=== PATIENT | male | born 1975 | race Caucasian/White ===

== ENCOUNTER 2023-12-01 14:14 | Emergency (ER) | payer OTHER, SELFPAY ==
--- NOTE | 2023-12-01 14:25 | ED.SKABFB ---
HPI - Skin/Abscess/Foreign Bdy General Chief complaint: Skin/Abscess/Foreign Body Stated complaint: wasp sting right finger,swollen Time Seen by Provider: 12/01/23 14:36 Source: patient and RN notes reviewed Mode of arrival: ambulatory Limitations: dementia History of Present Illness HPI narrative: 48-year-old male presents with concern for wasp sting to the right hand. Reports yesterday he was stung in the 2nd digit of the right hand by a wasp. He removed the stinger this morning. Reports swelling, redness at extending into the hand. He denies pain, reports mild itching. Denies lip swelling, tongue swelling, trouble breathing. 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 He does not currently have an EpiPen. MD complaint: insect bite/sting Related Data Home Medications Medication Instructions Recorded Confirmed lisinopril 5 mg tablet 5 mg PO DAILY 12/01/23 12/01/23 mirtazapine 15 mg tablet 15 mg PO HS 12/01/23 12/01/23 Allergies Allergy/AdvReac Type Severity Reaction Status Date / Time bee venom protein (honey bee) Allergy Severe Anaphylaxis Verified 12/01/23 14:38 Review of Systems Review of Systems: CONSTITUTIONAL: Denies malaise, chills, sweats, or fever. EYES: Denies redness, or discharge. ENT: Denies rhinorrhea, congestion, swollen lips, swollen tongue CARDIOVASCULAR: Denies chest pain, palpitations, or edema. RESPIRATORY: Denies cough or dyspnea. GASTROINTESTINAL: Denies abdominal pain, nausea, vomiting SKIN: Reports redness, swelling, warmth to the 2nd digit of the right hand and the dorsal hand. Denies purulent drainage, vesicles, bullae, numbness, pain beyond proportion MUSCULOSKELETAL: Denies joint pain or myalgia. NEUROLOGIC: Denies headache. All systems reviewed & are unremarkable except as noted in HPI and below PMFSH Comments At time of signature, agree with nursing past medical, surgical, social and family history. There is no relevant family history pertinent to the presenting complaint Exam Narrative: GENERAL: Well-appearing, well-nourished, and in no acute distress. HEAD: Normocephalic, atraumatic. EYES: PERRLA, conjunctivae clear ENT: Mucous membranes moist. NECK: Supple. No lymphadenopathy CHEST: Clear to auscultation. No respiratory distress. HEART: Regular rate and rhythm. SKIN: Warm, dry. Erythema, warmth noted to the 2nd digit and dorsal right hand, no induration. No vesicles, bullae, necrosis, ecchymosis, crepitus noted. NEURO: Alert and oriented x3. PSYCH: Normal mood and affect Course Course Emergency Course: Will prescribe patient epipen given his history of anaphylactic reaction to bee stings Patient is aware of diagnosis, understands and agrees to treatment plan. Anticipatory guidance given. Patient agrees to follow-up as directed and is aware of reasons to seek care at the emergency department. Portions of this record may have been created with voice recognition software Level of Care: Express Care Visit Vital Signs Vital signs: Reviewed. MDM - Skin/Abscess/Foreign Bdy MDM Narrative Medical decision making narrative: I evaluated this in the express care. History is obtained from patient who is an independent historian and physical exam was performed.? Available medical records were reviewed. ? Exam findings and relevant testing show no acute concerns or changes; patient is non-toxic appearing and is in no distress. No risk factors or findings concerning for epidural abscess, diskitis, vertebral osteomyelitis, cord compression, cauda equina, vertebral fracture or bone malignancy, AAA, or pyelonephritis. Patient instructed to consider further imaging and workup through their primary care physician as an outpatient if symptoms persist. Does not appear at this time to be erythema multiforme, bullous, SJS, TEN; no evidence at this time to suggest RMSF, NSTI, endocarditis or Lyme disease; patient looks well, nontoxic and is tolerating oral intake; no
[2023-12-01 14:28] VITALS: BP 116/75; PULSE 94; RESP 16; TEMP 37.1; O2SAT 98
== END 2023-12-01 14:44 | disposition home or self-care (01) ==
PROVIDERS: Emergency Provider Nurse Practitioner; PCP Internal Medicine
DX: T63.461A Toxic effect of venom of wasps, accidental (unintentional), initial encounter (principal); Z91.030 Bee allergy status; I10 Essential (primary) hypertension
CPT/HCPCS: 99203; G0463

== ENCOUNTER 2024-01-01 11:28 | Outpatient (CLI) | payer OTHER, SELFPAY ==
[2024-01-01 12:10] LABS: Basophils Absolute Auto 0.1 K/mm3 (0.0-0.1); Basophils Percent Auto 0.8 % (0.2-1.2); Eosinophils Absolute Auto 0.4 K/mm3 (0-0.3); Eosinophils Percent Auto 4.1 % (0-4.4); Hematocrit 41.1 % (42.0-52.0); Immature Granulocyte Absolute 0.03 K/mm3 (0.00-0.031); Immature Granulocyte Percent A 0.3 % (0-0.5); Lymphocytes Percent Auto 22.4 % (18.3-44.2); Mean Corpuscular HGB Conc 34.1 g/dl (32-36); Mean Corpuscular Volume 85.3 fl (80-100); Mean Platelet Volume 11.6 fl (7.4-10.4); Monocytes Absolute Auto 0.9 K/mm3 (0.1-0.6); Monocytes Percent Auto 8.7 % (2.6-8.5); Neutrophils Absolute Auto 6.2 K/mm3 (1.3-6.7); Neutrophils Percent Auto 63.7 % (45.5-73.1); Platelet Count Result 260 k/mm3 (150-375); Red Blood Count 4.82 M/mm3 (4.6-6.20); Red Cell Distribution Width 16.5 % (11.5-14.5); White Blood Count 9.8 K/mm3 (4.5-10.0)
== END 2024-01-01 11:29 | disposition home or self-care (01) ==
PROVIDERS: PCP Internal Medicine; Visit Provider Internal Medicine
DX: Z00.00 Encounter for general adult medical examination without abnormal findings (principal); I10 Essential (primary) hypertension; F41.9 Anxiety disorder, unspecified; Z12.5 Encounter for screening for malignant neoplasm of prostate
CPT/HCPCS: 36415; 80053; 80061; 84153; 84443; 85025; G0103

== ENCOUNTER 2024-01-13 08:44 | Outpatient (CLI) | payer OTHER, SELFPAY ==
[2024-01-13 09:26] LABS: Alanine Aminotransferase 17 U/L (6-50); Albumin Level 4.7 g/dL (3.5-5.1); Alkaline Phosphatase 92 U/L (38-126); Anion Gap 12 mmol/L (4-12); Aspartate Amino Transferase 26 U/L (17-59); Bilirubin,Total 0.6 mg/dL (0.2-1.3); Blood Urea Nitrogen 15 mg/dL (9-20); Carbon Dioxide 28 mmol/L (22-30); Chloride 99 mmol/L (98-107); Cholesterol 183 mg/dL (0-200); Estimated Glomerular Filt Rate > 60; Glucose 98 mg/dL (65-110); HDL Direct 49 mg/dL; Potassium 4.5 mmol/L (3.4-5.0); Sodium 139 mmol/L (137-145); Triglycerides 86 mg/dL (<150)
[2024-01-13 09:36] LABS: LDL Cholesterol Direct 97 mg/dL
[2024-01-13 09:56] LABS: Prostate Specific Antigen 1.5 ng/mL (< OR = 4.0); Thyroid Stimulating Hormone 0.643 uIU/mL (0.465-4.680)
== END 2024-01-13 08:45 | disposition home or self-care (01) ==
LOC: ANHLAB 08:45
PROVIDERS: PCP Internal Medicine; Visit Provider Internal Medicine
DX: Z00.00 Encounter for general adult medical examination without abnormal findings (principal); F41.9 Anxiety disorder, unspecified; I10 Essential (primary) hypertension; Z12.5 Encounter for screening for malignant neoplasm of prostate
CPT/HCPCS: 36415; 80053; 80061; 84153; 84443; G0103

== ENCOUNTER 2025-02-10 10:30 | Outpatient (CLI) | payer OTHER, SELFPAY ==
--- NOTE | 2025-02-10 10:35 | ECG_ITS ---
Test Date: 2025-02-10 10:46:03 Measurements Intervals [place] Rate: 76 P: 80 [place]: 140 QRS: 72 QRSD: 101 T: 60 QT: 363 QTc: 409 Interpretive Statements SINUS RHYTHM WITH OCCASIONAL SUPRAVENTRICULAR PREMATURE COMPLEXES POSSIBLE LEFT ATRIAL ENLARGEMENT ANTEROSEPTAL INFARCT, AGE INDETERMINATE BASELINE ARTIFACT- I, II, III, AVR, AVL, AVF, V1-V6 ABNORMAL ECG No previous ECG available for comparison Electronically Signed On 02-10-2025 10:48:34 CDT by Jasbir Garcia D.O.
--- OUTSIDE RECORDS SUMMARY | 2025-02-10 10:56 | XMS_ITS | Clinical Summary ---
Author Organization [facility] Address [address] [place] [address] Care Team Providers Care Credit Union Manager Name Role Phone Stella Hilario MD Primary Care Provider Source Comments [facility],non-owned Affiliates and Associated Physician Practices is amultiple site organization consisting of ambulatory clinics and hospital sitesin [place], [place], [place] and [place]. This disclosure is being madepursuant to the Care Everywhere program and may not contain all information available regarding this patient. 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 Gender Identity Not on file Sexual Orientation Not on file Plan of Treatment Health Maintenance Due Date Last Done Comments COLOGUARD (AGES 45-75) - COL ON CA SCREENING 1973 COLON MONITORING 1973 COLONOSCOPY - COLON CA SCREENING 1973 CT COLONOGRAPHY - COLON CA SCREENING 1973 Colorectal Cancer Screening 1973 FIT - COLON CA SCREENING 1973 FLEX SIG - COLON CA SCREENING 1973 LIPID TESTING 1973 HIV SCREENING 1988 HEPATITIS C SCREENING 08/17/1991 DTAP/TDAP/TD VACCINES (1 - Tdap) 1992 HEPATITIS B VACCINE (1 of 3 - 19+ 3-dose series) 1992 PNEUMOCOCCAL VACCINE 50+ (1 of 1 - PCV) 08/22/2023 ZOSTER VACCINE (1 of 2) 08/22/2023 COVID-19 VACCINE (1 - 4-2 5 season) 2024 DEPRESSION SCREENING 06/17/2024 INFLUENZA VACCINE (#1) 2025 HIB VACCINE Aged Out No longer eligi ble based on patient's age to complete this topic HPV VACCINE Aged Out No longer eligi ble based on patient's age to complete this topic MENINGOCOCCAL (Group B) VACC INE SHARED DECISION-MAKING Aged Out No longer eligibl e based on patient's age to complete this topic MENINGOCOCCAL GROUPS A/C/Y/W VACCINE Aged Out No longer eligible b ased on patient's age to complete this topic Insurance HEALTH Care Teams Credit Union Manager Relationship Specialty Start Date End Date Stella Hilario MD [id number] [id number] PCP - General Internal Medicine 09/01/18
--- OUTSIDE RECORDS SUMMARY | 2025-02-10 10:56 | XMS_ITS | Clinical Summary ---
Author Organization [facility] Address [address] [place] [address] Phone Care Team Providers Care Public Health Doctor Name Role Phone Unavailable Primary Care Provider Unavailabl e Allergies No known active allergies Medications folic acid (FOLVITE) 1 mg tablet Take 1 Tablet (1 mg) by mouth daily. 30 Tablet 09/12/2023 Active lisinopriL (PRINIVIL) 5 mg tablet Take 1 Tablet (5 mg) by mouth daily. 30 Tablet 1 09/12/2023 Active mirtazapine (REMERON) 15 mg tablet Take 1 Tablet (15 mg) by mouth daily at bedtime. 30 Tablet 2 09/11/2023 Active thiamine mononitrate (VITAMIN B-1) 100 mg tablet Take 1 Tablet (100 mg) by mouth daily. 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 No 09/07/2023 Sex and Gender Information Value Date Recorded Sex Assigned at Not on file Legal Sex Male 9:54 PM CDT Gender Identity Not on file Sexual Orientation Not on file Last Filed Vital Signs Vital Sign Reading Time Taken Comments Blood Pressure 114/50 09/11/2023 9:00 AM CDT Pulse 112 09/11/2023 9:00 AM CDT Temperature 37 C (98.6 F) 09/11/2023 9:00 AM CDT Respiratory Rate 18 09/11/2023 9:00 AM CDT Oxygen Saturation 97% 09/11/2023 9:00 AM CDT Inhaled Oxygen Concentration - - Weight 98.7 kg (217 lb 11.2 oz) 09/09/2023 2:16 PM CDT Height 175.3 cm (5' 9) 09/07/2023 9:08 PM CDT Body Mass Index 32.15 09/07/2023 9:08 PM CDT Plan of Treatment Health Maintenance Due Date Last Done Comments DTAP/TDAP/TD VACCINES (1 - Tdap) 1992 HEPATITIS B VACCINES (1 of 3 - 19+ 3-dose series) 12/1992 COLORECTAL SCREENING 2018 Colorectal Cancer Screening 2018 FIT-DNA Q 3 years 2018 FIT/FOBT Q 1 year 2018 Flex Sig/CT Colonography Q 5 years 2018 ZOSTER VACCINE (1 of 2) 08/22/2023 INFLUENZA VACCINE (#1) 2025 Insurance [facility] [employer] Advance Directives For more information, please contact: [phone] * Full Code (Latest Code Status on File) Date Activated Date Inactivated Comments 09/08/2023 3:18 AM 09/11/2023 3:20 PM
== END 2025-02-10 10:31 | disposition home or self-care (01) ==
LOC: ANHSURGERY 10:33
PROVIDERS: PCP Internal Medicine; Visit Provider Surgery
DX: Z01.818 Encounter for other preprocedural examination (principal); K40.20 Bilateral inguinal hernia, without obstruction or gangrene, not specified as recurrent; I10 Essential (primary) hypertension; Z87.891 Personal history of nicotine dependence
CPT/HCPCS: 36415; 86850; 86900; 86901; 93005

== ENCOUNTER 2025-02-12 00:39 | Day surgery (SDC) | payer OTHER, SELFPAY ==
[2025-02-05 13:09] VITALS: BMI 23.2
--- NOTE | 2025-02-05 13:21 | PC.NURSE ---
Report to the Outpatient Waiting Room, entrance under the green pavilion located off [facility], at time __07:00am on date ___02/12/25____. Planned Procedure Time: _09:00am .? Time changes happen often and if your time is changed the preop area will call you the afternoon before. - You and your visitor will be asked to self-screen and do not enter if you have any COVID symptoms. Please call surgeon if you need to reschedule. - A mask is optional within the hospital at this time. Patients may have clear liquids (water, carbonated beverages, clear teas, apple juice) until 3 hours prior to surgery with a maximum of 20 ounces. - No food from midnight until time of surgery and no smoking, or chewing tobacco (or any form of nicotine). No chewing gum, candy or mints. (0600am) Take only the following medications with a SIP of water on the morning of surgery: ___Buspirone DO NOT STOP ANY OF YOUR OTHER PRESCRIPTION MEDICATIONS PRIOR TO SURGERY EXCEPT THE FOLLOWING Hold all vitamins and supplements for 3 days per anesthesiologist. Medications to discontinue per physician NONE Date to take last dose NONE __ Please no make-up, nail canadian, hairspray, perfume, deodorant, or body powder the day of surgery.? No jewelry (including any body piercings) or valuables the day of surgery, leave them at home.? Please take a shower or bath the night before, or the morning of, surgery with an antibacterial soap.? Wear comfortable, loose fitting clothing.? - Jewelry must be removed prior to entering the operating room.? Rings and piercings that are not removed may be cut off. - The hospital will not accept responsibility for valuables.? - Please leave all valuables, including medications, at home the day of surgery. If you are going home after surgery, a licensed ice cream truck driver must drive you home.? - NO public transportation without another adult if you receive anesthesia. - We recommend that an adult stay with you for 24 hours following discharge. - We also recommend that you do not drive, make important decision, drink alcoholic beverages, or take any drugs that were not prescribed by your health care provider for at least 24 hours after your discharge time. Follow any additional instructions given to you from your surgeon. Telephone instructions given to _Patient and asked if any additional questions and then verbalized understanding. Patient advised to call surgeon office or pre surgery nurse liaison [phone] if any additional questions.
[2025-02-12] VITALS (10 sets, daily range): BP systolic 106–137; BP diastolic 69–85; PULSE 53–90; RESP 12–18; TEMP 36.2–36.3; O2SAT 95–100; BMI 23.1
[2025-02-12] MEDS: LACTATED RINGERS 1,000 ML 30 ML IV CONT ×3 (06:30→11:31)
[2025-02-12] MEDS: KETOROLAC 15 MG/ML VIAL (*BKC) IV PUSH ×2 (06:40→10:00)
[2025-02-12] MEDS: ACETAMINOPHEN 500 MG TABLET 1000 MG PO (06:40)
--- NOTE | 2025-02-12 07:11 | WPDHPUPDATE1 ---
History and Physical Update Update Date/Time: 02/12/25 07:11 History and Physical has been reviewed, including an updated exam of the patient. There are NO changes in the patient's condition. Risks, benefits, and alternatives have been discussed and questions answered. Patient agrees to proceed with procedure.
--- NOTE | 2025-02-12 07:24 | WPDANESEPPF ---
Anes - Initial Pre Proc Eval Procedure: Operation Date: 02/12/25 07:30 Proposed Procedures p Robotic Assisted Laparoscopic Bilateral Inguinal Hernia Repair with Mesh - Fer Frank MD Date/Time: 02/12/25 07:24 Surgeon: Fer Frank MD Pre Op Diagnosis: Bilateral Inguinal Hernia Patient Data Age: 49 Gender: M Height: 1.73 m Weight: 69.2 kg Last Vital Signs Temp 97.2 F L 02/12/25 06:10 Pulse 71 02/12/25 06:10 Resp 16 02/12/25 06:10 BP 106/69 02/12/25 06:10 Pulse Ox 97 02/12/25 06:10 O2 Del Method Room Air 02/12/25 06:10 Allergies Allergy/AdvReac Type Severity Reaction Status Date / Time bee venom protein (honey bee) Allergy Severe Anaphylaxis Verified 02/12/25 07:07 Home Medications ?Medication ?Instructions ?Recorded ?Confirmed ?Type buspirone 15 mg tablet 15 mg PO DAILY PRN anxiety #90 tabs 05/18/24 02/12/25 Rx lisinopril 5 mg tablet 5 mg PO DAILY #90 tabs 06/15/24 02/05/25 Rx mirtazapine 15 mg tablet 15 mg PO HS #90 tabs 06/15/24 02/05/25 Rx tadalafil 5 mg tablet (Cialis) 5 mg PO DAILY PRN sexual activity 01/12/25 02/05/25 History dextroamphetamine-amphetamine 30 30 mg PO DAILY #30 tabs 02/04/25 02/05/25 Rx mg tablet (Adderall) multivitamin (Daily Multi-Vitamin 1 tablet PO DAILY 02/05/25 02/12/25 History tablet) Patient hx anesthesia problems: none Family hx anesthesia problems: none Results Review: All pre-operative results and documents have been reviewed as part of the pre-operative evaluation. FORMERLY [facility], [facility] Past Medical History Medical History (Updated 01/21/25 @ 13:33 by Nikole Tobias) Anxiety Erectile dysfunction Hypertension Family History Family History Mother Hypertension Heart disease Social History Social History Smoking packs per day: 0.5 Smoking cigarettes per day: 10.0 Years smoked: 33 Smoking pack-years: 16.50 Smoking status: Current every day smoker Tobacco type: cigarettes Second hand tobacco smoke exposure: No Alcohol intake: never Substance use: current Substance use type: marijuana Other substance usage details: Smoke it few times daily Do You Feel Safe in your Home?: Yes Lack of Transportation: No Lack of Food: Never True Current Housing: I Have Housing Concerned About Future Housing: No Difficulty Paying Gas/Electric Bills: No Difficulty Paying for Meds: No Currently Unemployed: No Education: Bachelor's Degree Difficulty w/ Childcare or Family Care: No Living arrangements: with family Occupation/Education: occupation Additional occupation/education comments: [employer] Spiritual care concerns: No Anes - Eval Final PreProcedure Day of Procedure 02/12/25 07:24 Patient weight: normal Heart: regular rate and rhythm Lungs: clear to auscultation Airway: Mallampati scale class II Neurological: alert and oriented Last oral intake: >/= 8 hours ASA classification: II Emergent: no Anesthetic plan: proceed Anesthesia type and monitoring: general ETT and standard monitoring Results Review: All pre-operative results and documents have been reviewed as part of the pre-operative evaluation. Informed Consent: The patient's anesthetic plan and its attendant risks and benefits were discussed with the patient/family/POA. Questions were solicited and answers provided to the satisfaction of the patient/family/POA.
[2025-02-12] MEDS: ceFAZolin 2 GM in SODIUM CHLORIDE 0.9% IV 50 ML 100 ML IVPB (07:29)
--- NOTE | 2025-02-12 07:45 | P.PN_ITS ---
Subjective Date/time seen: 02/12/25 07:45 Interval history: Patient is now hospital day 3. Having been admitted for recurrent small-bowel obstruction. This morning he continues to complain of some diffuse mild abdominal pain. His exam appears to be a little better with some decreased distension. He did have at least 1 bowel movement overnight after his water- soluble small bowel study yesterday. These water-soluble small bowel study showed delayed contrast reaching the colon at 3 and half to 4hours. This is similar to when he had his small bowel series earlier this summer when he was admitted again for another small-bowel obstruction. White blood count is normal. No fever or tachycardia. Electrolytes are good. Platelet count is up to her 100,000 today. Exam GI: Other: Abdomen is soft and mildly distended. Mild diffuse tenderness to palpation. No guarding or diffuse peritonitis. Objective Data Vital Signs Vital Signs: Vital Signs - 24 hr 02/12/25 06:10 Temperature 36.2 C L Pulse Rate 71 Respiratory Rate 16 Blood Pressure 106/69 Pulse Oximetry 97 Oxygen Delivery Room Air Meds/Results Medications: Active Medications Generic Name Dose Route Start Last Admin Trade Name Freq PRN Reason Stop Dose Admin Fentanyl Citrate 25 mcg 02/11/25 15:09 Fentanyl Citrate Inj (*Crx) 100 Mcg/2 Ml Vial IV PUSH Q2M PRN Pain Lactated Ringer's 1,000 mls @ 30 mls/hr 02/11/25 15:10 02/12/25 06:30 Lr - Lactated Ringers Iv IV CONT 30 mls/hr .Q24H CAROLYN Administration Lactated Ringer's 1,000 mls @ 30 mls/hr 02/11/25 15:10 Lr - Lactated Ringers Iv IV CONT .Q24H CAROLYN Ondansetron HCl 4 mg 02/11/25 15:09 Ondansetron Inj 4 Mg/2 Ml Vial IV PUSH ONCE PRN Nausea Oxycodone HCl 5 mg 02/11/25 15:09 Oxycodone Hcl (*Crx) 5 Mg Tab Ir PO ONCE PRN Pain
[2025-02-12] MEDS: LIDO 1%/EPINEPHRINE 1:100,000 50 ML VIAL 30 ML INFILTRATE (08:21)
--- NOTE | 2025-02-12 10:13 | PM.OP ---
Procedure Note - Brief Procedure Note - Brief Date of procedure: 02/12/25 Bilateral Inguinal Hernia Procedure performed: Robotic assisted laparoscopic bilateral inguinal hernia repair with Bard 3D mid weight mesh Surgeon: Fer Frank MD Software Applications Designer: Gayatri TRAVIS Anesthesia: GETA Findings: Left indirect inguinal hernia, right direct inguinal hernia. Implants: Bard 3D mid weight mesh extended [id number] bilateral groins. Estimated blood loss (mL): 25 Drains: No Packing: No Pathology: None sent Complications: No immediate complications Condition: Stable Disposition: PACU
[2025-02-12] MEDS: fentaNYL CITRATE INJ (*CRX) 100 MCG/2 ML VIAL 25 MCG IV PUSH ×6 (11:05→11:34)
[2025-02-12] MEDS: oxyCODONE HCL (*CRX) 5 MG TAB IR PO (12:00)
--- NOTE | 2025-02-14 18:00 | W.PM.PROC2 ---
Procedure Note - Detailed Date of Procedure 02/12/25 Pre-op Diagnosis Bilateral Inguinal Hernia Post-op Diagnosis Same ( bilateral inguinal hernias (left indirect, right direct)) Procedure Performed robotic assisted laparoscopic bilateral inguinal hernia repair with Bard 3D mid weight mesh. Surgeon Fer Frank MD Special Procedures Nurse Gayatri TRAVIS Anesthesia General Indications patient is a 49-year-old gentleman who presented with a new bulge in the left groin region. It was not extending into his scrotum but it was large. It did reduce easily. On examination he was also found to have an asymptomatic right inguinal hernia. He presents now for an elective bilateral robotic assisted laparoscopic inguinal hernia repair with mesh. Findings Patient had a large left indirect inguinal hernia without incarcerated contents from the abdomen. He also had a moderately large direct right inguinal hernia. The bilateral hernias were repaired with placement of Bard 3D mid weight mesh [id number] bilaterally. Description of Procedure After informed consent was obtained patient was brought to the operating room was placed supine position and general endotracheal anesthesia was administered. The abdomen was then prepped and draped usual sterile fashion. A bilateral groins were prepped as well. Time-out was then performed correctly identifying the patient as well as procedure to be performed. He was given perioperative IV antibiotics. I then entered the abdomen left upper quadrant utilizing a 5mm Optiview port. Once inside the abdomen I insufflated to adequate pneumoperitoneum of 15mmHg of CO2. The patient was then placed in 15? Trendelenburg head-down position to allow the small bowel to fall out of the pelvis. I could then easily see the bilateral groin regions and he had a large indirect left inguinal hernia and a direct right inguinal hernia. There was no incarcerated contents within either hernia. I then placed additional robotic trocar ports across the mid abdomen. This is done under direct visualization. The [employer] robot was then brought to the patient's bedside and the robotic arms were attached the robotic ports. I then scrubbed out the procedure and the bedside assistant professor in family studies switched out the 5mm left upper quadrant trocar port to a 12mm trocar port. The robotic instruments were then advanced into the abdomen under direct visualization. I sat down at the robotic console to perform the dissection. I started to create a preperitoneal flap extending essentially from just medial to the right anterior superior iliac spine across the lower abdomen to the left side. I continued dissection this preperitoneal plane taking down the median umbilical ligament in the midline and extending this all the way down to the pubic symphysis and I entered into the space of Retzius. The bladder was taken down and the posterior wall the bladder was preserved without any injury. And then continued my dissection to the right side where I reduced the peritoneum out of the indirect defect. I then continued dissection of the peritoneum off of the internal ring and cord structures. Identified the vas deferens and testicular vessels and utilizing the robotic hook cautery device continued my dissection of the peritoeum up onto the psoas muscle proximal to where the cord structures and vas deferens . There is no evidence of a indirect hernia defect. I did identify a small fatty femoral hernia defect as well as a small fat containing obturator defect. I then proceeded to close the direct defect by placement of a running 2-0 absorbable V lock suture to imbricate the pseudo sac and attenuated transversalis muscle fibers. I then turned my attention towards dissection of the left groin. Again identified the left pubic tubercle and dissected down into the space of Retzius for couple cm. I continued my dissection laterally identifying the inferior epigastric vessels and preserving these without injury. I encountered the large indirect left inguinal hernia sac and this was then dissected free of the internal ring and inguinal canal and cord structures utilizing careful electrocautery dissection with the hook robotic cautery. Some fibers of the cremasteric muscle were divided to dissect this area out. The vas deferens and testicular vessels were preserved without injury. I dissected the peritoneum all the way up onto the psoas muscle. The hernia sac was then everted. Once I felt I had enough space dissected the placed 2 pieces of large mesh I then proceeded to choose a piece of Bard 3D mid weight mesh measuring [id number]. One piece of mesh of this size oriented for the respective side was then placed through the bedside assistant professor in family studies trocar port in left upper quadrant into the groin regions. Both pieces of mesh were then secured at the pubic tubercle with a 2-0 Vicryl sutures. The mesh was then secured laterally to the transversalis muscle anterior medial to the left and right anterior superior iliac spines. I then placed a distal sutures to secure the overlapping portions of the mesh in the midline to the muscle with 2-0 Vicryl sutures and in the areas of the direct space. The mesh was laid out very nicely and there was no tension. The peritoneal flap was then pulled up and there was no rolling of the mesh up with the closure of the peritoneal flap. I then proceeded to close the peritoneum utilizing a running 2-0 absorbable V lock suture. The large indirect redundant hernia sac on the left side was tacked up with the closure of the peritoneum. There were no holes in the peritoneum the need to be closed. Both pieces of mesh were then completely excluded from the intra-abdominal viscera by the peritoneum. I then proceeded to have the [employer] robot undocked from the patient's bedside and the instruments removed from the abdomen. I then scrubbed back in the procedure and utilizing the robotic laparoscopic visualize the repairs and removed the trocar ports under direct visualization. The abdomen was allowed to decompress. I irrigated out the port sites sterile saline solution. Hemostasis was good. I then closed the periumbilical 8mm trocar port fascial defect and the 12mm left upper quadrant trocar port fascial defect utilizing 0 Vicryl suture at the fascial level. The skin edges in all the port sites were then approximated utilizing a running subcuticular 4-0 Monocryl suture. The incisions were then cleaned the skin glue was applied. The patient tolerated the procedure well no complications. All sponges, needles, and instrument counts were correct at the end procedure. EBL was _20__cc. The patient was awakened and taken to recovery in stable and satisfactory condition. Implants Bard 3D mid weight mesh [id number] bilateral groins. Estimated Blood Loss 20 Drains No Packing No Pathology None sent Complications No immediate complications Condition Stable [facility] Billing Surgery - Charge Forward: Surgery Billing
== END 2025-02-12 13:10 | disposition home or self-care (01) ==
PROVIDERS: PCP Internal Medicine; Visit Provider Surgery
PROC: 8E0Y4CZ Robotic Assisted Procedure of Lower Extremity, Percutaneous Endoscopic Approach (ICD-10-PCS; CPT 49650; principal; 2025-02-12 07:30)
DX: K40.20 Bilateral inguinal hernia, without obstruction or gangrene, not specified as recurrent (principal); I10 Essential (primary) hypertension; N52.9 Male erectile dysfunction, unspecified; F41.9 Anxiety disorder, unspecified; F12.90 Cannabis use, unspecified, uncomplicated; F17.210 Nicotine dependence, cigarettes, uncomplicated; Z82.49 Family history of ischemic heart disease and other diseases of the circulatory system
CPT/HCPCS: 49650; S2900; 36415; 86850; 86900; 86901; 93005; J0690; A9270; C1781; J1100; J1885; J2003; J2004; J2250; J2405; J2704; J3010; J7120